=== PATIENT | female | born 1985 | race African-American/Black ===

== ENCOUNTER 2017-08-31 12:40 | Observation (INO) | payer BC ==
[2017-08-31] MEDS ORDERED: Lactated Ringer's 1,000 ML IV SCH ×2 (13:15→18:00)
[2017-08-31] MEDS ORDERED: Promethazine HCl 25 MG/ML VIAL IM PRN ×2 (13:33→17:52)
[2017-08-31] MEDS ORDERED: Acetaminophen 500 MG TAB PO PRN (17:52)
[2017-08-31] MEDS ORDERED: Ondansetron HCl/PF 4 MG/2 ML Vial IVP PRN (17:52)
--- NOTE | 2017-08-31 18:15 | PDOC.LDHP ---
Labor and Delivery H&P Chief complaint: other (N/V/D) HPI: 32 y/o at 20w4d, patient of Dr. Ji Elizondo, presents with vomiting and diarrhea today. She reports 7-8 watery BMs today and vomiting. She has been unable to keep anything down today. Denies any sick contacts. Denies VB, LOF, or other concerns. ROS neg for HEENT, CV, pulm, GI, , neuro, psych, skin, musculoskeletal, or constitutional symptoms other than mentioned above. OB History Details: 1 prior term LTCS for FTP 1 prior ectopic treated with MTX Past Medical History: None Current medications: pre- vitamins Previous surgical history: low tranverse CS, other (hymenectomy) Allergies/Adverse Reactions: Allergies Allergy/AdvReac Type Severity Reaction Status Date / Time Penicillins Allergy Mild Rash Verified 08/31/17 18:01 Social history: none - Physical Exam Vital signs reviewed and normal: yes Abnormal vital signs: temp of 100.8 General: NAD Lungs: nonlabored breathing Abdomen: gravid Extremeties: no edema FHT: category 1 (+FHTs) - Assessment 32 y/o G1 at 20w4d with gastroenteritis. No improvement with IM phenergan. - Plan Plan: observation in L&D -: Patient is difficult to start IVs in and will need ultrasound guidance. If unable to get peripheral, will need EJ to administer fluids. Will check CBC, CMP and give IV fluids. Dr. Elizondo aware. Will continue to monitor.
[2017-08-31 19:51] LABS: #Lymphocytes 0.8 thou/uL (1.20-3.40); #Monocytes 0.4 thou/uL (0.11-0.59); #Neutrophils 6.4 thou/uL (1.40-6.50); %Eosinophils 0.2 % (0.0-10.0); %Lymphocytes 10.2 % (21.0-51.0); %Monocytes 5.6 % (0.0-10.0); Hemoglobin 13.3 g/dL (12.0-16.0); Mean Corpuscular HGB CONC 33.2 g/dL (32.0-36.0); Mean Corpuscular Hemoglobin 26.2 pg (27.0-31.0); Mean Corpuscular Volume 78.9 fl (81.0-99.0); Mean Platelet Volume 6.8 fL (7.4-10.4); Platelet Count 241 thou/uL (130-400); RBC Distribution Width 12.7 % (11.5-14.5); Red Blood Cell (RBC) Count 5.09 mill/uL (4.20-5.40); White Blood Cell (WBC) Count 7.6 thou/uL (4.8-10.8)
[2017-08-31] MEDS: Lactated Ringer's 1,000 ML IV SCH (19:52)
[2017-08-31 20:14] LABS: ALT (SGPT) 12 U/L (8-55); AST (SGOT) 12 U/L (5-34); Albumin 3.3 g/dL (3.5-5.0); Alkaline Phosphatase 64 U/L (40-150); Anion Gap 16 mmol/L (10-20); BUN (Urea Nitrogen) 8 mg/dL (7.0-18.7); Bilirubin, Total 0.4 mg/dL (0.2-1.2); Calc. Creatinine Clearance 231 mL/min (70-130); Calcium 9.1 mg/dL (7.8-10.44); Carbon Dioxide 18 mmol/L (22-29); Chloride 108 mmol/L (98-107); Estimated GFR-MDRD Greater than 90; Glucose 70 mg/dL (70-105); Potassium 3.7 mmol/L (3.5-5.1); Protein, Total 7.3 g/dL (6.0-8.3); Sodium 138 mmol/L (136-145)
[2017-08-31 22:01] VITALS: BMI 36.2
[2017-09-01] MEDS: Lactated Ringer's 1,000 ML IV SCH ×2 (04:20→12:22)
--- NOTE | 2017-09-01 07:58 | PRG ---
DATE OF SERVICE: 09/01/2017 SUBJECTIVE: The patient is feeling better this morning and was able to tolerate water overnight. Ryne yuan has not yet tried anything more than water, but would like to do that prior to going home. She den ies any vaginal bleeding or abdominal pain at this point. She still has some diarrhea. PHYSICAL EXAMINATION: VITAL SIGNS: Blood pressure 83/44, pulse 90, temperature 99.1, respirations 24, O2 saturation 96% on room air. GENERAL: Awake, alert, in no acute distress. CHEST: Nonlabored breathing. ABDOMEN: Soft, nondistended, nontender to palpation. LABORATORY DATA: WBC 7.6, hemoglobin 13.3, hematocrit 40.4. Chemistry unremarkable. ASSESSMENT AND PLAN: A 32-year-old G3, P1-0-1-1 at 20 weeks and 5 days with gastroenteritis. She re ceived IV fluids overnight and is feeling better. She will try a mild breakfast this morning and lik lindy be discharged home later this morning if able to tolerate.
[2017-09-01 08:50] VITALS: TEMP 98.4
[2017-09-01 12:29] VITALS: BP 104/61
--- NOTE | 2017-09-01 17:18 | PDOC.EVN ---
Event Note - Event Note Event Note: OBGYN [employer] DISCHARGE NOTE: Admit date 08/31/17 Discharge date: 09/01/17 Patient was admitted by Dr Vega with N/V in . She recieved IVF hydration and felt better for discharge on 09/01/17. Working DX per Dr Vega was suspected gastroenteritis. Home with carlos prn Follow up with Dr pichardo Patient seen on day of discharge by me at 1715: S. Fels better O. VSS afebrile No Contractions No VB Assessment: probable gastroenteritis Plan: Home with Carlos
== END 2017-09-01 18:15 | disposition home or self-care (01) ==
LOC: L&D/OP 12:40 → L&D 20:14 → 3SE 21:17
PROVIDERS: ADMIT Obstetrics & Gynecology; ATTEND Family Medicine
DX: O99.612 Diseases of the digestive system complicating pregnancy, second trimester (principal); K52.9 Noninfective gastroenteritis and colitis, unspecified; O09.12 Supervision of pregnancy with history of ectopic pregnancy, second trimester; Z88.0 Allergy status to penicillin; Z88.1 Allergy status to other antibiotic agents; Z79.899 Other long term (current) drug therapy; Z3A.20 20 weeks gestation of pregnancy; Z98.891 History of uterine scar from previous surgery
CPT/HCPCS: 36415; 80053; 85025; 96360; 96361; 96372; 99285; G0378; J2550

== ENCOUNTER 2017-12-15 08:28 | Day surgery (SDC) | payer BC ==
[2017-12-15 09:05] VITALS: BMI 36.0
[2017-12-15 09:06] VITALS: TEMP 98.1
[2017-12-15 09:07] VITALS: BP 125/85
[2017-12-15 09:25] LABS: #Lymphocytes 1.2 thou/uL (1.20-3.40); #Monocytes 0.6 thou/uL (0.11-0.59); #Neutrophils 7.4 thou/uL (1.40-6.50); %Basophils 0.2 % (0.0-1.0); %Eosinophils 0.2 % (0.0-10.0); %Lymphocytes 12.8 % (21.0-51.0); %Monocytes 6.3 % (0.0-10.0); %Neutrophils 80.5 % (42.0-75.0); Hemoglobin 13.6 g/dL (12.0-16.0); Mean Corpuscular HGB CONC 34.2 g/dL (32.0-36.0); Mean Corpuscular Volume 78.9 fL (78.0-98.0); Mean Platelet Volume 7.7 fL (7.4-10.4); Platelet Count 201 thou/uL (130-400); RBC Distribution Width 12.8 % (11.5-14.5); Red Blood Cell (RBC) Count 5.05 mill/uL (4.20-5.40); White Blood Cell (WBC) Count 9.1 thou/uL (4.8-10.8)
[2017-12-15 09:45] LABS: ALT (SGPT) 27 U/L (8-55); AST (SGOT) 20 U/L (5-34); Albumin 3.4 g/dL (3.5-5.0); Alkaline Phosphatase 101 U/L (40-150); Anion Gap 14 mmol/L (10-20); BUN (Urea Nitrogen) 7 mg/dL (7.0-18.7); Bilirubin, Total 0.4 mg/dL (0.2-1.2); Calc. Creatinine Clearance 217 mL/min (70-130); Calcium 9.1 mg/dL (7.8-10.44); Carbon Dioxide 17 mmol/L (22-29); Chloride 108 mmol/L (98-107); Estimated GFR-MDRD Greater than 90; Globulin 4.2 g/dL (2.4-3.5); Glucose 101 mg/dL (70-105); Potassium 4.1 mmol/L (3.5-5.1); Protein, Total 7.6 g/dL (6.0-8.3); Sodium 135 mmol/L (136-145)
[2017-12-15 10:46] LABS: Bilirubin Small (Negative); Blood, Urine Trace (Negative); Glucose, Urine (Dipstick) Negative (Negative); Leukocyte Negative (Negative); Nitrite Negative (Negative); Protein, Urine (Dipstick) Trace mg/dL (Neg-Trace); Specific Gravity, Urine 1.025 (1.005-1.030); Urobilinogen 0.2 mg/dL (0.2-1.0); pH, Urine 6.5 (5.0-9.0)
[2017-12-15 10:47] LABS: Clarity CLEAR (Clear)
[2017-12-15 10:52] LABS: Bacteria/HPF 2+ HPF (None Seen); Hyaline Casts/LPF NONE SEEN LPF (0-3 Hyaline); Renal Epithelial None Seen HPF (0-3); Transitional Epithelial 0-3 HPF (0-3)
--- NOTE | 2017-12-15 21:55 | SS ---
LABOR AND DELIVERY TRIAG NOTE DATE OF EVALUATION: 12/15/2017 REGULAR PHYSICIAN: Leah Elizondo M.D. EVALUATING PHYSICIAN: Gaurang Gray M.D. CHIEF COMPLAINT: Nausea, vomiting, diarrhea at home since early this morning. HISTORY OF PRESENT ILLNESS: Ms. Mata is a 32-year-old black G3, P1-0-1-1 with an estimated date of confinement of 01/13/2018 who presents complaining of nausea, vomiting, and diarrhea since approxi mately 4 this morning. She states she has vomited 4 times. She has had several episodes of diarrhea . She denies vaginal bleeding or ruptured of membranes. Her care has been with Dr. Elizondo and has been reportedly uncomplicated. PAST OBSTETRICAL HISTORY: Includes one for failure to progress as well as an ectopic that was successfully treated with methotrexate. PAST MEDICAL HISTORY: Unremarkable. PAST SURGICAL HISTORY: Includes the above as well as the hymenectomy. CURRENT MEDICATIONS: vitamins. ALLERGIES: PENICILLIN and NEOSPORIN. SOCIAL HISTORY: She denies tobacco, alcohol, or drug use. FAMILY HISTORY: Unremarkable. REVIEW OF SYSTEMS: Positive for nausea, vomiting, diarrhea. Negative for vaginal bleeding, ruptured membranes, fever, or chills. PHYSICAL EXAMINATION: VITAL SIGNS: On admission 125/85, pulse 99, O2 saturation 94%. GENERAL: She is afebrile. ABDOMEN: Soft, nontender and gravid. heart rate tracing is stable. Initially, there was some irritability, but with oral hydration. There are no significant contractions. LABORATORY DATA: White count 9.1, hemoglobin and hematocrit 13.6 and 39.9 respectively, platelet cou nt 200,000. Chemistry: Sodium 135, potassium 4.1, BUN 7, creatinine 0.6. AST and ALT are both norm al at 20 and 27 respectively, alkaline phosphatase 101, amylase 65. Urinalysis shows trace protein 1 + ketones. There is negative nitrites, negative leukocyte esterase. ASSESSMENT AND PLAN: 1. A 36-week intrauterine . 2. Nausea, vomiting, diarrhea. PLAN: As the patient has had no nausea and vomiting or diarrhea during her evaluation here. She nadya l be sent home on Zofran 8 mg sublingually one p.o. b.i.d. #15 are given. She is given complete prec autions and is told to hydrate herself well at home with Gatorade and return here should her symptoms not improved. She voiced understanding of her discharge instructions and was sent home in good cond ition.
== END 2017-12-15 11:43 | disposition home or self-care (01) ==
LOC: L&D/OP 08:28
PROVIDERS: ATTEND Family Medicine
DX: O99.89 Other specified diseases and conditions complicating pregnancy, childbirth and the puerperium (principal); R11.2 Nausea with vomiting, unspecified; R19.7 Diarrhea, unspecified; Z3A.36 36 weeks gestation of pregnancy
CPT/HCPCS: 36415; 80053; 81003; 81015; 82150; 85025; 99282

== ENCOUNTER 2017-12-28 14:29 | Outpatient (CLI) | payer BC | END 2017-12-28 14:30 | disposition home or self-care (01) | LOC: BICULT 14:29 | PROVIDERS: ATTEND Family Medicine | DX: O36.63X0 Maternal care for excessive fetal growth, third trimester, not applicable or unspecified (principal); O41.03X0 Oligohydramnios, third trimester, not applicable or unspecified; Z3A.38 38 weeks gestation of pregnancy | CPT/HCPCS: 76805 ==

== ENCOUNTER 2017-12-29 13:38 | Inpatient (IN) | payer BC ==
[~2017-12-29 13:38] MED LIST: Glycopyrrolate 0.2 MG/ML 5 ML SYRINGE ONE; Ketorolac Tromethamine 30 MG/ML VIAL ONE; Ondansetron HCl/PF 4 MG/2 ML Vial ONE; PHENYLEPHRINE-NS 100 MCG/ML 10 ML SYRINGE ONE; ePHEDrine/0.9% NaCl/PF SYRINGE 50 mg/10 ml ONE
[2017-12-29] MEDS ORDERED: Promethazine HCl 25 MG/ML VIAL IM PRN ×2 (13:44→17:05)
[2017-12-29] MEDS ORDERED: Ondansetron HCl/PF 4 MG/2 ML Vial IVP PRN ×4 (13:44→19:44)
[2017-12-29] MEDS ORDERED: CEFAZOLIN/Water 2 GM/20 ML SYRINGE SLOW IVP SCH (13:45)
[2017-12-29] MEDS ORDERED: Bicitra 30 ML UDCUP PO SCH (13:45)
[2017-12-29] MEDS ORDERED: Lactated Ringer's 1,000 ML IV SCH ×2 (13:45→19:44)
[2017-12-29 14:38] LABS: Hemoglobin 12.4 g/dL (12.0-16.0); Mean Corpuscular HGB CONC 33.6 g/dL (32.0-36.0); Mean Corpuscular Hemoglobin 26.5 pg (27.0-31.0); Mean Platelet Volume 7.7 fL (7.4-10.4); Platelet Count 190 thou/uL (130-400); RBC Distribution Width 12.8 % (11.5-14.5); Red Blood Cell (RBC) Count 4.66 mill/uL (4.20-5.40); White Blood Cell (WBC) Count 8.8 thou/uL (4.8-10.8)
[2017-12-29 14:40] VITALS: BMI 37.0
[2017-12-29 15:06] LABS: Syphilis Antibody Nonreactive (Nonreactive); Syphilis Antibody Index 0.05 S/CO (<1.00 Non-Reactive)
[2017-12-29 15:27] LABS: HBSAg Index 0.21 S/CO (0-0.99); Hep B Surf Ag Non-Reactive S/CO (NonReactive)
[2017-12-29] MEDS ORDERED: Fentanyl 100 MCG/2 ML VIAL ONE (16:16)
[2017-12-29] MEDS ORDERED: Morphine PF 1 MG/ML SYR ONE (16:17)
[2017-12-29] MEDS ORDERED: Oxytocin 10 UNITS/ML VIAL ONE ×2 (16:17→16:51)
[2017-12-29] MEDS ORDERED: Bupivacaine 0.75% W/DEXTROSE 8.25% 2 ML AMP ONE (16:24)
[2017-12-29] MEDS ORDERED: Meperidine HCl/PF 25 MG/ML VIAL SLOW IVP PRN (17:05)
[2017-12-29] MEDS ORDERED: Eucerin (Mineral Oil/Petrolatum,White) 30 gm Jar TOP PRN (17:05)
[2017-12-29] MEDS ORDERED: Naloxone HCl 0.4 mg/ml Vial IV PRN (17:05)
[2017-12-29] MEDS ORDERED: diphenhydrAMINE 50 MG/ML VIAL IVP PRN (17:05)
[2017-12-29] MEDS ORDERED: Promethazine HCl 25 MG SUPP PR PRN (17:05)
[2017-12-29] MEDS ORDERED: Naloxone HCl 0.4 mg/ml Vial IVP PRN ×2 (17:05)
[2017-12-29] MEDS ORDERED: HYDROmorphone 2 MG/ML VIAL SLOW IVP PRN (17:05)
[2017-12-29] MEDS ORDERED: Communication Order-Pharmacy FS SCH (17:15)
[2017-12-29] MEDS ORDERED: diphenhydrAMINE 50 MG/ML VIAL ONE (19:15)
[2017-12-29] MEDS ORDERED: Acetaminophen 325 MG TAB PO PRN (19:44)
[2017-12-29] MEDS ORDERED: diphenhydrAMINE 25 MG CAP PO PRN (19:44)
[2017-12-29] MEDS ORDERED: Lanolin Ointment 7 GM TUBE TOP PRN (19:44)
[2017-12-29] MEDS ORDERED: Bisacodyl 10 MG SUPP PR PRN (19:44)
[2017-12-29] MEDS: Simethicone Chewable 80 MG TAB PO PRN (22:51)
[2017-12-29] MEDS ORDERED: Acetaminophen 1,000 MG in Premix Bag 1 BAG IVPB PRN (23:00)
[2017-12-29] MEDS: Docusate Calcium (SURFAK) 240 MG CAP PO SCH (23:10)
[2017-12-29] MEDS: Ferrous Sulfate 325 MG TAB PO SCH (23:11)
--- NOTE | 2017-12-29 23:45 | OP ---
DATE OF PROCEDURE: 12/29/2017 PREOPERATIVE DIAGNOSES: A 37-week 6 day intrauterine with oligohydramnios and previous karitk arean section. POSTOPERATIVE DIAGNOSES: A 37-week 6 day intrauterine with oligohydramnios and previous ce sarean section status post delivery. PROCEDURE: Repeat low transverse section. SURGEON: Leah Elizondo M.D. ACETYLENE BURNER: Juan Pabon M.D. and Chas Amador, MS-III. ANESTHESIA: Spinal anesthetic. COMPLICATIONS: None. PROCEDURE IN DETAIL: After adequate spinal anesthetic, the patient was placed in supine position. A wedge was placed under her right flank. Hills catheter was placed and the abdomen was prepped and d raped in the usual sterile technique. A Pfannenstiel incision was made through the old scar. Subcut aneous tissue was opened with sharp dissection. Fascia was opened with sharp dissection. Peritoneum opened with sharp and blunt dissection, noted that the abdomen was filled with a gravid uterus. An Sarmad O retractor was placed without difficulty and a low transverse incision was made on the uterus . Membranes were ruptured and small amount of clear fluid was encountered. A viable female w as delivered from vertex presentation without difficulty. breathed and cried spontaneously. After approximately 30 seconds, the cord was clamped and cut. Infant was dried and handed to the car e of the neonatology team. Cord blood was obtained and the placenta was delivered manually. A wet l ap was used to wipe clean the uterus and the hysterotomy edges were grasped with ring forceps. The h ysterotomy was then closed in continuous fashion using 0 Monocryl. Hemostasis was adequate. There w as no bleeding. Gutters were checked. The Sarmad O retractor was removed and the peritoneum was the n closed in continuous fashion using 2-0 chromic. Fascia was then closed in continuous fashion using 0 Vicryl. Sponge and instrument counts were correct. The subcutaneous tissue was irrigated. Bleed ers were cauterized and a running suture of 2-0 plain was used to approximate the subcutaneous tissue . The skin was then closed using adolph and a dressing applied. The patient tolerated the procedur e well to go to the recovery room in good condition. The baby is a viable female infant, weight 7 po unds 10 ounces with Apgars 8 at 1 minute, 9 at 5 minutes. ESTIMATED BLOOD LOSS: Approximately 800 mL. Quantitative blood loss pending at this time.
[2017-12-30] MEDS ORDERED: Ketorolac Tromethamine 30 MG/ML VIAL IVP PRN (01:00)
[2017-12-30 05:56] LABS: Hemoglobin 10.3 g/dL (12.0-16.0); Mean Corpuscular HGB CONC 33.6 g/dL (32.0-36.0); Mean Corpuscular Hemoglobin 26.8 pg (27.0-31.0); Mean Corpuscular Volume 79.9 fL (78.0-98.0); Mean Platelet Volume 7.8 fL (7.4-10.4); Platelet Count 136 thou/uL (130-400); RBC Distribution Width 12.6 % (11.5-14.5); Red Blood Cell (RBC) Count 3.83 mill/uL (4.20-5.40); White Blood Cell (WBC) Count 8.5 thou/uL (4.8-10.8)
[2017-12-30] MEDS: Ferrous Sulfate 325 MG TAB PO SCH ×2 (08:25→21:02)
[2017-12-30] MEDS: Docusate Calcium (SURFAK) 240 MG CAP PO SCH ×2 (08:44→21:21)
[2017-12-30] MEDS: Prenatal Vitamin 1 TAB PO SCH (08:45)
[2017-12-30] MEDS: HYDROcodone/Acetaminophen 5/325 mg Tablet PO PRN ×2 (08:45→12:39)
--- NOTE | 2017-12-30 11:00 | OP ---
DATE OF PROCEDURE: 12/29/2017 Ms. Mercedes Mata had a primary with primary surgeon as Dr. Leah Elizondo on 12/29/2017. I served as psychology assistant to Dr. Leah Elizondo.
[2017-12-30] MEDS: Simethicone Chewable 80 MG TAB PO PRN ×3 (12:39→23:26)
[2017-12-30] MEDS: Acetaminophen/Codeine 30-300mg Tablet PO PRN (17:35)
[2017-12-30] MEDS: Ibuprofen 800 MG TAB PO SCH (18:25)
[2017-12-31] MEDS: Ibuprofen 800 MG TAB PO SCH ×3 (02:13→18:36)
[2017-12-31] MEDS: Simethicone Chewable 80 MG TAB PO PRN ×2 (05:44→21:05)
[2017-12-31] MEDS: Acetaminophen/Codeine 30-300mg Tablet PO PRN ×2 (05:44→22:39)
[2017-12-31] MEDS: Ferrous Sulfate 325 MG TAB PO SCH (09:04)
[2017-12-31] MEDS: Docusate Calcium (SURFAK) 240 MG CAP PO SCH ×2 (09:45→21:04)
[2017-12-31] MEDS: Prenatal Vitamin 1 TAB PO SCH (09:45)
[2017-12-31] MEDS: HYDROcodone/Acetaminophen 5/325 mg Tablet PO PRN (21:05)
[2018-01-01 08:53] VITALS: BP 126/79; TEMP 98.2
[2018-01-01] MEDS ORDERED: Ibuprofen 800 MG TAB PO SCH (10:00)
[2018-01-01] MEDS: Prenatal Vitamin 1 TAB PO SCH (10:12)
[2018-01-01] MEDS: Docusate Calcium (SURFAK) 240 MG CAP PO SCH (10:13)
[2018-01-01] MEDS: Ferrous Sulfate 325 MG TAB PO SCH (10:13)
[2018-01-02] MEDS ORDERED: Ibuprofen 800 MG TAB PO SCH (14:00)
== END 2018-01-01 11:45 | disposition home or self-care (01) | DRG 766 ==
LOC: L&D 13:38 → 3SW 20:21
PROVIDERS: ADMIT Family Medicine; ATTEND Family Medicine
PROC: 10D00Z1 Extraction of Products of Conception, Low, Open Approach (ICD-10-PCS; principal; 2017-12-29)
DX: O41.03X0 Oligohydramnios, third trimester, not applicable or unspecified (principal); Z3A.37 37 weeks gestation of pregnancy; O34.211 Maternal care for low transverse scar from previous cesarean delivery; Z37.0 Single live birth; O76 Abnormality in fetal heart rate and rhythm complicating labor and delivery; Z88.0 Allergy status to penicillin
CPT/HCPCS: 36415; 51702; 85027; 86780; 86850; 86900; 86901; 87340; J0131; J1200; J1885; J2274; J2405; J2590; J3010; J3490

== ENCOUNTER 2019-12-29 08:39 | Emergency (ER) | payer BC, OTHER ==
[2019-12-29 10:19] LABS: #Eosinphils 0.1 thou/uL (0.0-0.7); #Lymphocytes 2.8 thou/uL (1.20-3.40); #Monocytes 0.6 thou/uL (0.11-0.59); #Neutrophils 4.5 thou/uL (1.40-6.50); %Basophils 0.5 % (0.0-1.0); %Eosinophils 1.1 % (0.0-10.0); %Lymphocytes 35.1 % (21.0-51.0); %Monocytes 7.1 % (0.0-10.0); %Neutrophils 56.1 % (42.0-75.0); Hemoglobin 13.3 g/dL (12.0-16.0); Mean Corpuscular HGB CONC 31.8 g/dL (32.0-36.0); Mean Corpuscular Hemoglobin 25.4 pg (27.0-31.0); Mean Corpuscular Volume 79.6 fL (78.0-98.0); Mean Platelet Volume 7.4 fL (7.4-10.4); Platelet Count 329 thou/uL (130-400); RBC Distribution Width 12.4 % (11.5-14.5); Red Blood Cell (RBC) Count 5.26 mill/uL (4.20-5.40)
[2019-12-29 10:29] LABS: ALT (SGPT) 33 U/L (8-55); AST (SGOT) 23 U/L (5-34); Albumin 3.8 g/dL (3.5-5.0); Alkaline Phosphatase 84 U/L (40-110); Anion Gap 14 mmol/L (10-20); BUN (Urea Nitrogen) 6 mg/dL (7.0-18.7); Bilirubin, Total 0.2 mg/dL (0.2-1.2); Calc. Creatinine Clearance 0 mL/min (70-130); Carbon Dioxide 20 mmol/L (22-29); Chloride 105 mmol/L (98-107); Estimated GFR-MDRD 85; Globulin 4.2 g/dL (2.4-3.5); Glucose 88 mg/dL (70-105); Magnesium 1.9 mg/dL (1.6-2.6); Potassium 3.7 mmol/L (3.5-5.1); Sodium 135 mmol/L (136-145)
== END 2019-12-29 11:06 | disposition home or self-care (01) ==
LOC: ERS 08:39
DX: A04.9 Bacterial intestinal infection, unspecified (principal); E86.0 Dehydration; F41.9 Anxiety disorder, unspecified; F32.9 Major depressive disorder, single episode, unspecified; Z79.899 Other long term (current) drug therapy
CPT/HCPCS: 80053; 83735; 84443; 85025; 93005; 96360

== ENCOUNTER 2021-10-29 10:51 | Outpatient (CLI) | payer OTHER | END 2021-10-29 10:52 | disposition home or self-care (01) | LOC: BICRAD 10:51 | PROVIDERS: ATTEND Nurse Practitioner Family | DX: M54.50 Low back pain, unspecified (principal) | CPT/HCPCS: 72100 ==

== ENCOUNTER 2022-06-04 08:32 | Day surgery (SDC) | payer BC ==
[2022-06-03 09:36] VITALS: BMI 42.7
[2022-06-04] MEDS ORDERED: Iopamidol 30 ML ONE (10:38)
[2022-06-04] MEDS ORDERED: SUGAMMADEX SODIUM 200 MG/2 ML VIAL ONE ×2 (10:40→12:02)
[2022-06-04] MEDS ORDERED: Fentanyl 100 MCG/2 ML VIAL ONE ×2 (10:40→12:29)
[2022-06-04] MEDS ORDERED: Levofloxacin 500 mg/D5W 100 ml Premix Bag ONE (10:47)
[2022-06-04] MEDS ORDERED: Metoclopramide HCl 10 MG/2 ML VIAL ONE (10:57)
[2022-06-04] MEDS ORDERED: PROPOFOL 200 MG/20 ML VIAL ONE (10:57)
[2022-06-04] MEDS ORDERED: Rocuronium Bromide 10 MG/ML (10ML VIAL) ONE (10:57)
[2022-06-04] MEDS ORDERED: Lidocaine 1% PF 5 ML VIAL ONE (10:57)
[2022-06-04] MEDS ORDERED: Ketorolac Tromethamine 30 MG/ML VIAL ONE (10:57)
[2022-06-04] MEDS ORDERED: PHENYLEPHRINE-NS 100 MCG/ML 10 ML SYRINGE ONE (10:57)
[2022-06-04] MEDS ORDERED: Dexamethasone 20 MG/5 ML VIAL ONE (10:57)
[2022-06-04] MEDS ORDERED: Phenazopyridine HCl 100 MG TAB ONE (12:15)
[2022-06-04] MEDS ORDERED: Oxybutynin 5 MG TAB ONE (12:15)
[2022-06-04] MEDS ORDERED: HYDROcodone/Acetaminophen 5/325 mg Tablet ONE (14:31)
[2022-06-04 14:57] LABS: Troponin I Less than 0.010 ng/mL (< 0.028)
== END 2022-06-04 16:11 | disposition home or self-care (01) ==
LOC: SDC 08:32
PROVIDERS: ATTEND Urology
PROC: 0TC08ZZ Extirpation of Matter from Right Kidney, Via Natural or Artificial Opening Endoscopic (ICD-10-PCS; principal; 2022-06-04)
PROC: 0T768DZ Dilation of Right Ureter with Intraluminal Device, Via Natural or Artificial Opening Endoscopic (ICD-10-PCS; principal; 2022-06-04)
DX: N13.2 Hydronephrosis with renal and ureteral calculous obstruction (principal); R35.0 Frequency of micturition; E65 Localized adiposity; Z79.1 Long term (current) use of non-steroidal anti-inflammatories (NSAID); Z88.0 Allergy status to penicillin; Z88.1 Allergy status to other antibiotic agents
CPT/HCPCS: 74018; 74420; 82365; 84484; 88300; 93005; 93010; C1769; C2617; J1100; J1885; J1956; J2704; J2765; J3010; Q9967

== ENCOUNTER 2022-06-04 22:26 | Observation (INO) | payer BC ==
[2022-06-05] MEDS ORDERED: Ondansetron PF 4 MG/2 ML Vial ONE ×2 (00:34→05:49)
[2022-06-05] MEDS ORDERED: Morphine 4 MG/ML VIAL ONE ×3 (00:34→12:09)
[2022-06-05 01:26] LABS: BHCG - Serum Negative (NEGATIVE); Pregs Control Background? CLEAR/WHITE (CLR/WHITE); Pregs Control Bar Appear? YES (CONTROL BAR)
[2022-06-05 01:31] LABS: ALT (SGPT) 21 U/L (8-55); AST (SGOT) 19 U/L (5-34); Albumin 3.9 g/dL (3.5-5.0); Alkaline Phosphatase 83 U/L (40-110); Anion Gap 11 mmol/L (10-20); BUN (Urea Nitrogen) 10 mg/dL (7.0-18.7); Bilirubin, Total 0.3 mg/dL (0.2-1.2); Calc. Creatinine Clearance 0 mL/min (70-130); Calcium 9.6 mg/dL (7.8-10.44); Carbon Dioxide 23 mmol/L (22-29); Chloride 105 mmol/L (98-107); Estimated GFR 101; Globulin 4.3 g/dL (2.4-3.5); Glucose 137 mg/dL (70-105); Lipase 27 U/L (8-78); Potassium 4.3 mmol/L (3.5-5.1); Protein, Total 8.2 g/dL (6.0-8.3); Sodium 135 mmol/L (136-145)
[2022-06-05 02:46] LABS: #Lymphocytes 1.5 thou/uL (1.20-3.40); #Monocytes 0.3 thou/uL (0.11-0.59); #Neutrophils 8.3 thou/uL (1.40-6.50); %Basophils 0.2 % (0.0-1.0); %Eosinophils 0.2 % (0.0-10.0); %Lymphocytes 15.1 % (21.0-51.0); %Monocytes 3.4 % (0.0-10.0); %Neutrophils 81.2 % (42.0-75.0); Hemoglobin 12.5 g/dL (12.0-16.0); Mean Corpuscular HGB CONC 32.4 g/dL (32.0-36.0); Mean Corpuscular Hemoglobin 25.2 pg (27.0-31.0); Mean Corpuscular Volume 77.8 fl (78.0-98.0); Mean Platelet Volume 8.1 fL (7.4-10.4); Platelet Count 309 10x3/uL (130-400); RBC Distribution Width 13.4 % (11.5-14.5); Red Blood Cell (RBC) Count 4.95 mill/uL (4.20-5.40); White Blood Cell (WBC) Count 10.2 10x3/uL (4.8-10.8)
[2022-06-05] MEDS ORDERED: HYDROcodone/Acetaminophen 5/325 mg Tablet ONE (03:37)
[2022-06-05] MEDS ORDERED: Ketorolac Tromethamine 30 MG/ML VIAL ONE ×2 (03:56→10:34)
[2022-06-05] MEDS ORDERED: Acetaminophen 325 MG TAB PO PRN (05:17)
[2022-06-05] MEDS ORDERED: Ondansetron PF 4 MG/2 ML Vial IVP PRN (05:17)
[2022-06-05 05:23] VITALS: BMI 46.8
[2022-06-05] MEDS: Morphine 4 MG/ML VIAL SLOW IVP PRN ×3 (05:52→19:21)
[2022-06-05] MEDS ORDERED: HYDROmorphone 0.5 MG/0.5 ML SYRINGE ONE (06:30)
[2022-06-05] MEDS ORDERED: HYDROmorphone 0.5 MG/0.5 ML SYRINGE SLOW IVP SCH (06:45)
[2022-06-05] MEDS ORDERED: Ketorolac Tromethamine 30 MG/ML VIAL IVP PRN (07:32)
[2022-06-05] MEDS ORDERED: Acetaminophen 500 MG TAB PO PRN (07:32)
[2022-06-05] MEDS ORDERED: diphenhydrAMINE 50 MG/ML VIAL IVP PRN (07:32)
[2022-06-05] MEDS ORDERED: Oxybutynin 5 MG TAB PO PRN (07:32)
[2022-06-05] MEDS ORDERED: Phenazopyridine HCl 100 MG TAB PO PRN (07:40)
[2022-06-05 07:44] LABS: Troponin I Less than 0.010 ng/mL (< 0.028)
[2022-06-05 08:07] LABS: Bacteria/HPF None Seen HPF (None Seen); Bilirubin Negative (Negative); Blood, Urine 3+ (Negative); Clarity Clear (Clear); Glucose, Urine (Dipstick) Normal (Negative); Ketone, Urine 20 mg/dL (Negative); Leukocyte 25 Leu/uL (Negative); Nitrite Negative (Negative); Protein, Urine (Dipstick) 70 mg/dL (Neg-Trace); RBC/HPF Greater than 50 HPF (0-3); Specific Gravity, Urine 1.044 (1.002-1.036); Squamous Epithelial None Seen HPF (0-3); Urobilinogen Normal mg/dL (Less than 2); pH, Urine 6.5 (5.0-9.0)
[2022-06-05] MEDS ORDERED: Famotidine/PF 20 mg/2ml Vial ONE (08:20)
[2022-06-05] MEDS: Sodium Chloride 0.9% 1,000 ML IV SCH ×2 (08:36→18:19)
[2022-06-05] MEDS: Senokot S 8.6-50 MG TAB PO SCH ×2 (08:36→19:20)
[2022-06-05] MEDS: Docusate 100 MG CAP PO SCH ×2 (08:36→19:20)
[2022-06-05] MEDS: Famotidine/PF 20 mg/2ml Vial SLOW IVP SCH ×2 (08:36→19:21)
[2022-06-05] MEDS ORDERED: HYDROcodone/Acetaminophen 7.5/325 mg Tablet ONE (09:14)
[2022-06-05] MEDS: HYDROcodone/Acetaminophen 7.5/325 mg Tablet PO PRN (09:15)
[2022-06-05 09:59] LABS: Troponin I Less than 0.010 ng/mL (< 0.028)
[2022-06-05] MEDS ORDERED: Levofloxacin 500 mg/D5W 100 ml Premix Bag ONE (10:04)
[2022-06-05 13:24] LABS: Troponin I Less than 0.010 ng/mL (< 0.028)
[2022-06-05] MEDS ORDERED: Iopamidol-370 76% 500 ML 1 ML ONE ×2 (15:13→15:16)
[2022-06-06] MEDS: Morphine 4 MG/ML VIAL SLOW IVP PRN (01:40)
[2022-06-06] MEDS: Sodium Chloride 0.9% 1,000 ML IV SCH (05:09)
[2022-06-06 07:15] LABS: #Basophils 0.1 thou/uL (0.0-0.2); #Eosinphils 0.1 thou/uL (0.0-0.7); #Lymphocytes 4.1 thou/uL (1.20-3.40); #Monocytes 0.8 thou/uL (0.11-0.59); %Basophils 0.6 % (0.0-1.0); %Eosinophils 0.5 % (0.0-10.0); %Lymphocytes 37.4 % (21.0-51.0); %Monocytes 7.6 % (0.0-10.0); %Neutrophils 53.8 % (42.0-75.0); Hemoglobin 11.4 g/dL (12.0-16.0); Mean Corpuscular HGB CONC 31.8 g/dL (32.0-36.0); Mean Corpuscular Hemoglobin 25.5 pg (27.0-31.0); Mean Corpuscular Volume 80.2 fl (78.0-98.0); Mean Platelet Volume 7.9 fL (7.4-10.4); Platelet Count 281 10x3/uL (130-400); RBC Distribution Width 13.5 % (11.5-14.5); Red Blood Cell (RBC) Count 4.46 mill/uL (4.20-5.40); White Blood Cell (WBC) Count 11.1 10x3/uL (4.8-10.8)
[2022-06-06 07:43] LABS: Anion Gap 12 mmol/L (10-20); BUN (Urea Nitrogen) 10 mg/dL (7.0-18.7); Calc. Creatinine Clearance 203 mL/min (70-130); Calcium 8.5 mg/dL (7.8-10.44); Carbon Dioxide 18 mmol/L (22-29); Chloride 111 mmol/L (98-107); Estimated GFR 106; Glucose 91 mg/dL (70-105); Potassium 3.8 mmol/L (3.5-5.1); Sodium 137 mmol/L (136-145)
[2022-06-06] MEDS: HYDROcodone/Acetaminophen 7.5/325 mg Tablet PO PRN (08:51)
[2022-06-06] MEDS: Docusate 100 MG CAP PO SCH (08:53)
[2022-06-06] MEDS: Famotidine/PF 20 mg/2ml Vial SLOW IVP SCH (08:53)
[2022-06-06] MEDS: Senokot S 8.6-50 MG TAB PO SCH (08:53)
[2022-06-06 11:48] VITALS: BP 103/67; TEMP 98
== END 2022-06-06 14:13 | disposition home or self-care (01) ==
LOC: ERS 22:26 → ERHOLD 06-05 04:58 → T4-A 06-05 13:26
PROVIDERS: ADMIT Internal Medicine; ATTEND Internal Medicine
DX: G89.18 Other acute postprocedural pain (principal); R10.9 Unspecified abdominal pain; R07.2 Precordial pain; F41.1 Generalized anxiety disorder; E66.01 Morbid (severe) obesity due to excess calories; Z68.42 Body mass index [BMI] 45.0-49.9, adult; Z79.1 Long term (current) use of non-steroidal anti-inflammatories (NSAID); Z79.2 Long term (current) use of antibiotics; Z79.82 Long term (current) use of aspirin; Z88.0 Allergy status to penicillin; Z88.1 Allergy status to other antibiotic agents; Z20.822 Contact with and (suspected) exposure to COVID-19
CPT/HCPCS: 36415; 51701; 71046; 71275; 74177; 80048; 80053; 81003; 81015; 83690; 84484; 84703; 85025; 85379; 87086; 93005; 96374; 96375; 96376; G0378; J1170; J1885; J1956; J2270; J2405; J7050; Q9967; S0028; U0003; U0005

== ENCOUNTER 2023-08-14 14:12 | Outpatient (CLI) | payer BC | END 2023-08-14 14:13 | disposition home or self-care (01) | LOC: BICULT 14:12 | PROVIDERS: ATTEND Nurse Practitioner Family | DX: E04.2 Nontoxic multinodular goiter (principal) | CPT/HCPCS: 76536 ==

== ENCOUNTER 2024-03-28 13:17 | Outpatient (CLI) | payer BC | END 2024-03-28 13:18 | disposition home or self-care (01) | LOC: BICULT 13:17 | PROVIDERS: ATTEND Physician Assistant | DX: E04.2 Nontoxic multinodular goiter (principal) | CPT/HCPCS: 76536 ==